=== PATIENT | male | born 1935 | race Caucasian/White ===

== ENCOUNTER → 2020-05-04 | Outpatient (CLI) | payer MEDICARE ==
[2020-05-04 11:25] LABS: BASOPHILS % (AUTO) 1 % (0-1); EOSINOPHILS % (AUTO) 2 % (1-7); LYMPHOCYTES % (AUTO) 16 % (22-44); MEAN CORPUSCULAR HEMOGLOBIN 32.9 pg (27.5-34.5); MEAN CORPUSCULAR HGB CONC 34.1 g/dL (33.2-36.2); MEAN PLATELET VOLUME 7.4 fL (7.4-10.4); MONOCYTES % (AUTO) 6 % (2-9); NEUTROPHILS % (AUTO) 75 % (42-75); PLATELET COUNT 229 x10^3/uL (130-400); RED BLOOD COUNT 4.74 x10^6/uL (4.38-5.82); RED CELL DISTRIBUTION WIDTH 13.1 % (9.4-14.8)
[2020-05-04 11:27] LABS: MD NO
[2020-05-04 11:29] LABS: ANION GAP 8 mmol/L (5-15); CHLORIDE 108 mmol/L (98-107)
[2020-05-04 11:33] LABS: ALANINE AMINOTRANSFERASE 19 U/L (12-78); ALKALINE PHOSPHATASE 92 U/L (45-117); BILIRUBIN,TOTAL 0.9 mg/dL (0.2-1.0); CHOL/HDL RATIO 2.7; CHOLESTEROL, TOTAL 181 mg/dL (140-239); CREATININE 1.75 mg/dL (0.7-1.3); HDL CHOL % 37 % (26-37); HDL CHOLESTEROL (DIRECT) 67 mg/dL (40-60); LDL CHOLESTEROL,CALCULATED 90 mg/dL (54-169); LDL/HDL RATIO 1.3 (0.5-3.0); TOTAL PROTEIN 7.9 g/dL (6.4-8.2); TRIGLYCERIDES 118 mg/dL (50-200); VLDL CHOLESTEROL 24 mg/dL (0-25)
== END | disposition home or self-care (01) ==
LOC: LAB 10:59
PROVIDERS: ATTEND Family Medicine
DX: E78.2 Mixed hyperlipidemia (principal); I10 Essential (primary) hypertension
CPT/HCPCS: 36415; 80053; 80061; 85025

== ENCOUNTER 2020-07-28 10:50 | Emergency (ER) | payer MEDICARE ==
[~2020-07-28] VITALS: Ht 177.8 cm; Wt 73.8 kg
--- NOTE | 2020-07-28 11:24 | NUR ---
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
--- NOTE | 2020-07-28 12:02 | NUR ---
Pt to room at 1145.
--- NOTE | 2020-07-28 12:22 | NUR ---
Pt states he's fallen twice in the past 10 days. Pt denies dizziness, and per "he shuffles now, that's why he falls." Pt has a hx of septic shock in October 2017 from a gallbladder infection. is concerned for infection again as his personality has changed in the last month. Pt does not express major complaints, however is at the bedside with notes about his recent health events.
--- NOTE | 2020-07-28 12:47 | NUR ---
BREAK RN: PILLOW AND WARM BLANKET PROVIDED, NAD NOTED AND AT BEDSIDE. PT TO CT WITH TECH TRANSPORT
[2020-07-28 13:15] LABS: BASOPHILS % (AUTO) 1 % (0-1); EOSINOPHILS % (AUTO) 0 % (1-7); LYMPHOCYTES % (AUTO) 10 % (22-44); MEAN CORPUSCULAR HEMOGLOBIN 32.7 pg (27.5-34.5); MEAN CORPUSCULAR HGB CONC 33.8 g/dL (33.2-36.2); MEAN PLATELET VOLUME 7.3 fL (7.4-10.4); MONOCYTES % (AUTO) 7 % (2-9); NEUTROPHILS % (AUTO) 82 % (42-75); PLATELET COUNT 239 x10^3/uL (130-400); RED BLOOD COUNT 4.64 x10^6/uL (4.38-5.82); RED CELL DISTRIBUTION WIDTH 12.7 % (9.4-14.8)
[2020-07-28 13:19] LABS: ALANINE AMINOTRANSFERASE 18 U/L (12-78); ALBUMIN 3.8 g/dL (3.4-5.0); ANION GAP 7 mmol/L (5-15); CALCIUM 9.1 mg/dL (8.5-10.1); CHLORIDE 107 mmol/L (98-107); CREATININE 1.63 mg/dL (0.7-1.3)
[2020-07-28 13:23] LABS: ALKALINE PHOSPHATASE 96 U/L (45-117); BILIRUBIN,TOTAL 1.1 mg/dL (0.2-1.0); TOTAL PROTEIN 7.6 g/dL (6.4-8.2); TROPONIN I < 0.015 ng/mL (0.000-0.045)
[2020-07-28 13:28] LABS: MD SCAN
--- NOTE | 2020-07-28 14:04 | NUR ---
TASK RN: PT AMBULATED TO THE BR W/ A STEADY GAIT. PROVIDED URINAL FOR SAMPLE. HAT PLACED IN TOILET FOR STOOL SAMPLE.
[2020-07-28 14:38] LABS: MICROSCOPIC INDICATED
[2020-07-28 15:01] LABS: FREE T4 (FREE THYROXINE) 1.09 ng/dL (0.76-1.46)
--- NOTE | 2020-07-28 15:19 | NUR ---
MD Winslow back to bedside to update pt on POC.
[2020-07-28 15:43] VITALS: BP 133/80
== END 2020-07-28 15:45 | disposition home or self-care (01) ==
LOC: ED 15:38
DX: R53.1 Weakness (principal); R51.9 Headache, unspecified; R06.89 Other abnormalities of breathing; R53.83 Other fatigue; R94.31 Abnormal electrocardiogram [ECG] [EKG]; I10 Essential (primary) hypertension
CPT/HCPCS: 36415; 70450; 71045; 80053; 81001; 84439; 84443; 84484; 85025; 93005; 99285